=== PATIENT | male | born 2000 | race Caucasian/White ===

== ENCOUNTER → 2024-12-13 09:14 | Outpatient (CLI) | payer BC, SELFPAY ==
[2024-12-13 11:17] LABS: Influenza A - CEPHEID Flu A NEGATIVE (NEGATIVE); Influenza B - CEPHEID Flu B NEGATIVE (NEGATIVE); Respiratory Syncytial Virus Negative (Negative)
[2024-12-13 12:02] LABS: COVID-19 CEPHEID 4-PLEX PCR Negative (Negative)
== END ==
PROVIDERS: Visit Provider Chiropractor
DX: R05.1 Acute cough (principal)
CPT/HCPCS: 0241U